=== PATIENT | female | born 1945 | race Hispanic/Latino ===

== ENCOUNTER 2016-06-28 06:54 | Day surgery (SDC) | payer MEDICARE, BC ==
[2015-12-25 10:56] VITALS: BMI 24.5
[2016-06-28 07:26] LABS: ADD MANUAL DIFF? NO
[2016-06-28 07:29] LABS: BASO # 0.02 K/mm3 (0.0-2.0); BASO % 0.3 % (0.0-3.0); EOS # 0.3 (0.0-0.7); GRAN # 3.66 (1.4-6.5); GRAN % 57.4 % (50.0-68.0); LYMPH # 1.9 (1.2-3.4); LYMPH % 29.5 % (22.0-35.0); MEAN CELL VOLUME 90.7 fL (80.0-105.0); MEAN CORPUSCULAR HEMOGLOBIN 31.2 pg (25.0-35.0); MEAN CORPUSCULAR HGB CONC 34.4 g/dl (31.0-37.0); MEAN PLATELET VOLUME 10.1 fl (7.0-11.0); MONO # 0.5 (0.1-0.6); MONO % 7.8 % (1.0-6.0); PLATELET COUNT 163 10^3/uL (120.0-450.0); RED CELL DISTRIBUTION WIDTH 12.6 % (11.5-14.5); WHITE BLOOD COUNT 6.4 10^3/ul (4.5-11.0)
[2016-06-28 07:39] LABS: BLOOD UREA NITROGEN 13 mg/dL (7-21); CALCIUM 9.5 mg/dL (8.4-10.5); CARBON DIOXIDE 27 mmol/L (21-33); CHLORIDE 100 mmol/L (98-107); GFR AFRICAN-AMERICAN > 60; GLUCOSE,RANDOM 186 mg/dL (70-110); POTASSIUM 3.9 mmol/L (3.6-5.0); SODIUM 140 mmol/L (132-148)
[2016-06-28 07:42] LABS: INR 1.01 (0.93-1.08); PARTIAL THROMBOPLASTIN TIME 25.9 Seconds (23.7-30.8)
--- NOTE | 2016-06-28 08:21 | CP.SDSHP ---
Same Day Surgery H & P - History Proposed Procedure: Cat scan guided liver biopsy Pre-Op Diagnosis: Fatty liver - Previous Medical/Surgical History Cardiac: Hypertension Pulmonary: Smoking (smoked 1PPD x 30 years,quit 12 years ago) Endocrine/Metabolic: Diabetes Misc: Other (Hyperlipidemia,glaucoma,neuropathy,history of Ca of colon and skin) Pain: 0. No Pain (has numbness of the feet) Previous Surgical History: Bilateral cataract surgery. Bowel resection. Facial biopsy x 3. Hernioraphy and appendectomy/lysis of adhesions. R chest port insertion and removal. Insertion of ophthalmic eye ports - Allergies Allergies: Allergies No Known Allergies Allergy (Verified 01/30/15 04:16) - Physical Exam General Appearance: Well nourished female Mental Status: Alert & Oriented x3 Neuro: WNL Heart: WNL Lungs: WNL - {Optional Preform as Required} Abdomen: Other (old surgical scars noted) - Impression Impression: Fatty liver - Date & Time Date: 06/28/16 Time: 08:20 Short Stay Discharge - Short Stay Discharge Admitting Diagnosis/Reason for Visit: FATTY LIVER K76.0 Disposition: HOME/ ROUTINE
[2016-06-28] MEDS ORDERED: Midazolam 2 MG/2 ML VIAL ONE (09:08)
[2016-06-28] MEDS ORDERED: Oxycodone/Acetaminophen 5/325 mg Tab PO PRN (10:08)
[2016-06-28] MEDS ORDERED: Sodium Chloride 0.45% 1,000 ML IV SCH (10:15)
[2016-06-28 11:11] VITALS: BP 130/64; PULSE 90; RESP 20; TEMP 97.9; O2SAT 94
--- NOTE | 2016-06-28 19:03 | CT ---
PROCEDURE: CT guided liver biopsy. HISTORY: Fatty liver. Abnormal LFTs. Previous chemotherapy. Evaluate for cirrhosis. PHYSICIAN(S): Michael Sheridan MD. TECHNIQUE: The relative risks and indications of the procedure were explained to the patient and consent obtained. The patient was placed supine on the CT scanner and preliminary images through the liver obtained. Conscious sedation and monitoring were provided throughout the procedure by a nurse. There is diffuse fatty infiltration of the liver.. A subxyphoid approach was selected and the area prepped and draped in the usual sterile fashion. 1% Xylocaine was used to anesthetize the skin and soft tissues. A 17-gauge guiding needle was advanced into the lateral segment of the left lobe of the liver. Its position was confirmed with CT. Using coaxial technique, multiple core biopsies were obtained. The postprocedure images show no evidence of significant hemorrhage. IMPRESSION: 1. CT-guided liver biopsy as described above.
== END 2016-06-28 13:40 | disposition home or self-care (01) ==
LOC: SDS 06:54
PROVIDERS: ATTEND Radiology Vascular & Interventional Radiology
DX: K74.60 Unspecified cirrhosis of liver (principal); K75.81 Nonalcoholic steatohepatitis (NASH); R79.89 Other specified abnormal findings of blood chemistry; I10 Essential (primary) hypertension; E11.9 Type 2 diabetes mellitus without complications; E78.5 Hyperlipidemia, unspecified; Z85.038 Personal history of other malignant neoplasm of large intestine; Z92.21 Personal history of antineoplastic chemotherapy; Z87.891 Personal history of nicotine dependence
CPT/HCPCS: 36415; 47000; 77012; 80048; 85025; 85610; 85730; 88307; J2250; J2405; J3010; J7030

== ENCOUNTER 2016-10-05 10:32 | Day surgery (SDC) | payer MEDICARE, BC ==
[2015-12-25 10:56] VITALS: BMI 24.5
[2016-10-05] MEDS ORDERED: cefTRIAXone (Rocephin) 1 gm Inj ONE (12:34)
[2016-10-05] MEDS ORDERED: cefTRIAXone 1 GM in NS 100 ML BAG IVPB ONE (12:35)
[2016-10-05] MEDS ORDERED: Propofol 10 mg/ml Inj (20 ML) ONE (12:38)
[2016-10-05] MEDS ORDERED: Sodium Chloride 0.9% 1,000 ML IV SCH (13:00)
[2016-10-05 14:34] VITALS: BP 144/58; PULSE 83; RESP 20; TEMP 98.5; O2SAT 95
== END 2016-10-05 14:21 | disposition home or self-care (01) ==
LOC: ENDO 10:32
PROVIDERS: ATTEND Internal Medicine Gastroenterology
DX: K29.50 Unspecified chronic gastritis without bleeding (principal); K29.80 Duodenitis without bleeding; K74.60 Unspecified cirrhosis of liver; E11.9 Type 2 diabetes mellitus without complications; I10 Essential (primary) hypertension; R13.10 Dysphagia, unspecified
CPT/HCPCS: 43239; 88305; 88342; J0696; J2704; J7040 ×2